=== PATIENT | female | born 1950 | race Caucasian/White ===

== ENCOUNTER 2018-07-07 15:28 | Emergency (ER) | payer MEDICARE, BC | END 2018-07-07 16:46 | disposition home or self-care (01) | LOC: ERS 15:28 | DX: S09.90XA Unspecified injury of head, initial encounter (principal); Z87.891 Personal history of nicotine dependence; W19.XXXA Unspecified fall, initial encounter | CPT/HCPCS: 99283 ==

== ENCOUNTER 2018-12-09 09:27 | Outpatient (CLI) | payer MEDICARE, BC ==
--- NOTE | 2018-12-09 11:23 | MMO ---
Bilateral MAMMO Bilat Screen [facility]. CLINICAL HISTORY: Patient is 68 years old and is seen for screening. The patient has no family history of breast cancer. The patient has no personal history of cancer. The patient has a history of bilateral Implants - benign. VIEWS: The views performed were: bilateral craniocaudal; bilateral mediolateral oblique; and bilateral Implant displaced with tomosynthesis. FILMS COMPARED: The present examination has been compared to prior imaging studies performed at [facility] on 01/24/2004, 01/15/2006 and 05/11/2009. MAMMOGRAM FINDINGS: There are scattered fibroglandular densities. Stable appearance to bilateral breast implants. There are no suspicious masses, suspicious calcifications, or new areas of architectural distortion. IMPRESSION: THERE IS NO MAMMOGRAPHIC EVIDENCE OF MALIGNANCY. A ROUTINE FOLLOW-UP MAMMOGRAM IN 1 YEAR IS RECOMMENDED. THE RESULTS OF THIS EXAM WERE SENT TO THE PATIENT. ACR BI-RADS Category 2 - Benign finding MAMMOGRAPHY NOTE: 1. A negative mammogram report should not delay a biopsy if a dominant of clinically suspicious mass is present. 2. Approximately 10% to 15% of breast cancers are not detected by mammography. 3. Adenosis and dense breasts may obscure an underlying neoplasm. Reported by: MOE PERSON MD Electonically Signed: [id number]
== END 2018-12-09 09:28 | disposition home or self-care (01) ==
LOC: BICMAMMO 09:27
PROVIDERS: ATTEND Family Medicine
DX: Z12.31 Encounter for screening mammogram for malignant neoplasm of breast (principal); Z98.82 Breast implant status
CPT/HCPCS: 77063; 77067

== ENCOUNTER 2018-12-16 12:09 | Outpatient (CLI) | payer MEDICARE, BC ==
--- NOTE | 2018-12-16 13:27 | ULT ---
CAROTID ULTRASOUND WITH DAVIES SCALE AND DOPPLER DUPLEX COLOR FLOW IMAGING SPECTRAL ANALYSIS PERFORMED: CLINICAL INDICATION: Headaches. FINDINGS: There is minimal atherosclerotic calcification of the carotid arteries. PEAK SYSTOLIC VELOCITY (CM/S): Right ICA 88 Left ICA 90 There is antegrade flow within the visualized bilateral vertebral arteries. IMPRESSION: 1. No hemodynamically significant stenosis of the right internal carotid artery. 2. No hemodynamically significant stenosis of the left internal carotid artery. POS: C
[2018-12-16] MEDS ORDERED: ISOVUE-370 76%-LOCM 1 ML ONE (13:55)
--- NOTE | 2018-12-16 14:11 | CT ---
CT HEAD WITH AND WITHOUT CONTRAST: INDICATION: Altered mental status. COMPARISON: No prior comparison. FINDINGS: The ventricular system is age-appropriate in size. There is mild chronic ischemic disease of the cer ebral white matter. No acute intracranial hemorrhage or mass effect or midline shift. No pathologic intraaxial enhancement is identified. Mild mucosal thickening in the paranasal sinuses is present. IMPRESSION: 1. No acute intracranial abnormality. 2. Mild chronic ischemic disease of the cerebral white matter. POS: C
== END 2018-12-16 12:10 | disposition home or self-care (01) ==
LOC: BICULT 12:09 → ULT 12:10
PROVIDERS: ATTEND Nurse Practitioner Family
DX: G45.9 Transient cerebral ischemic attack, unspecified (principal); R53.83 Other fatigue; R51 Headache; R41.0 Disorientation, unspecified; R53.1 Weakness; I10 Essential (primary) hypertension; I08.3 Combined rheumatic disorders of mitral, aortic and tricuspid valves; R90.82 White matter disease, unspecified
CPT/HCPCS: 70470; 93306; 93880; Q9966

== ENCOUNTER 2019-06-01 09:49 | Outpatient (CLI) | payer MEDICARE, BC ==
--- NOTE | 2019-06-01 10:30 | BD ---
EXAM: DEXA bone density examination HISTORY: 69-year-old postmenopausal female for screening COMPARISON: None FINDINGS: L1--bone mineral density 0.741 g/sq cm; T score -2.3 L2--bone mineral density 0.902 g/sq cm; T score -1.1 L3--bone mineral density 1.072 g/sq cm; T score -0.1 L4--bone mineral density 1.198 g/sq cm; T score 1.2 Total L1-L4--bone mineral density 0.994 g/sq cm; T score -0.5 Left femoral neck--bone mineral density0.663; T score -1.7 Total proximal left femur--bone mineral density 0.735; T score -1.7 IMPRESSION: Osteopenia. This patient has a 10 year WHO fracture risk of a major osteoporotic fracture of 9.3% and of a hip fracture of 1.6%.
== END 2019-06-01 09:50 | disposition home or self-care (01) ==
LOC: BICMAMMO 09:49
PROVIDERS: ATTEND Family Medicine
DX: Z13.820 Encounter for screening for osteoporosis (principal); Z00.00 Encounter for general adult medical examination without abnormal findings; M85.80 Other specified disorders of bone density and structure, unspecified site; Z78.0 Asymptomatic menopausal state
CPT/HCPCS: 77080

== ENCOUNTER 2019-12-02 10:00 | Outpatient (CLI) | payer MEDICARE, BC ==
--- NOTE | 2019-12-02 10:27 | ULT ---
Hepatic sonogram with duplex evaluation HISTORY: Hepatitis. FINDINGS: Gallbladder has normal appearance without stone evident. Common duct is 0.5 cm. Liver has a heterogeneous echotexture without focal mass or intrahepatic biliary dilatation. No free fluid. Spleen measures up to 8.6 cm length. Good color and spectral Doppler flow within the hepatic and splenic arteries. Portal venous flow is t owards the liver. Hepatic venous flow is towards the IVC. IMPRESSION : Status post cholecystectomy. No sonographic findings of portal venous hypertension.
== END 2019-12-02 10:01 | disposition home or self-care (01) ==
LOC: BICULT 10:00
PROVIDERS: ATTEND Internal Medicine Hepatology
DX: K75.4 Autoimmune hepatitis (principal); Z90.49 Acquired absence of other specified parts of digestive tract
CPT/HCPCS: 76705

== ENCOUNTER 2021-03-24 13:41 | Outpatient (CLI) | payer MEDICARE, BC | END 2021-03-24 13:42 | disposition home or self-care (01) | LOC: BICULT 13:41 | PROVIDERS: ATTEND Internal Medicine Hepatology | DX: K75.4 Autoimmune hepatitis (principal); K80.20 Calculus of gallbladder without cholecystitis without obstruction | CPT/HCPCS: 76705 ==